=== PATIENT | male | born 1980 | race Two or more races ===

== ENCOUNTER 2020-02-21 20:28 | Inpatient (IN) | payer SELFPAY ==
[2020-02-21 20:45] VITALS: BP 164/93; PULSE 104; RESP 18; TEMP 37.1; O2SAT 98; BMI 29.7
--- NOTE | 2020-02-21 20:48 | ECG_ITS ---
[facility] Test Date: 2020-02-21 Pat Name: Cornell Neal Department: Room: Gender: Male Display Decorator: : 1980 Requested By: Opal Fitzgerald Order Number: [id number] Watkins MD: Farrah Lujan M.D. Measurements Intervals [place] Rate: 96 P: 39 CA: 160 QRS: 40 QRSD: 94 T: 23 QT: 335 QTc: 423 Interpretive Statements SINUS RHYTHM No previous ECG available for comparison Electronically Signed On 02-21-2020 21:15:37 CDT by Farrah Lujan M.D. [email or web address]
--- NOTE | 2020-02-21 20:50 | ED_ITS ---
HPI - General Adult General: Chief complaint: Psychiatric Symptoms Stated complaint: 96 Time Seen by Provider: 02/21/20 20:41 Source: patient Mode of arrival: ambulatory Limitations: no limitations History of Present Illness: HPI narrative: Cornell is a 40-year-old male who arrives here under a 96-hour hold. Patient previously made suicidal comments and gestures. There are multiple affidavits on the chart. Please see this for review. Patient is reliable at this time. Associated symptoms: Deny chest pain, dyspnea, headache(s), nausea, rash, palpitations, syncope or vomiting Review of Systems Const: Denies: fever(s) Eyes: Denies: change in vision ENMT: Denies: throat pain Card: Denies: chest pain, palpitations, syncope, pre-syncope or dyspnea on exertion Resp: Denies: dyspnea, productive cough or non-productive cough GI: Denies: abdominal pain, nausea, vomiting or diarrhea : Denies: flank pain, dysuria, urinary frequency or urinary urgency Musc: Denies: neck pain, back pain or extremity pain Skin/Breast: Denies: rash or pruritus Neuro: Denies: headache(s), numbness in extremities, weakness in extremities or dizziness Eric/Lymph: Denies: easy bruising or easy bleeding All/Imm: Denies: urticaria Physical Exam Const: COMMON NORMALS: no acute distress, patient oriented x3, no limitations, healthy appearing and well nourished GENERAL APPEARANCE: cooperative, well kempt and well developed HENMT: COMMON NORMALS: normocephalic, atraumatic, external ears normal, EAC's normal and Normal external nose present HEAD & SCALP: normal to inspection, normocephalic and atraumatic FACE & SINUS: normal facial exam and face symmetric NOSE: Normal external nose present and Normal nares present EXTERNAL EAR: Yes external ears normal EXTERNAL AUDITORY CANAL: EAC's normal MOUTH: Normal oral and palatal mucosa present, lip normal and tongue normal Eye: COMMON NORMALS: Equal, round and reactive pupils present and conjunctivae normal GENERAL EYE: appearance normal, both eyes and all related structures ALIGNMENT: Yes alignment normal PERIORBITAL: periorbital findings normal EYELID: eyelids normal CONJUNCTIVA: Yes conjunctivae normal SCLERA: sclerae normal PUPIL: Yes Equal, round and reactive pupils present Neck/C-Spine: COMMON NORMALS: full ROM, no lymphadenopathy, supple, no meningeal signs and no JVD GENERAL: Yes normal visual inspection and Yes trachea midline Chest: COMMONS NORMALS: normal inspection of the chest and normal palpation of entire chest wall Resp: COMMON NORMALS: normal respiratory effort, No retractions and No use of accessory muscles EFFORT & INSPECTION: Yes able to speak in complete sentences and Yes symmetric chest movement AUSCULTATION: no crackles, no rales, no rhonchi and no wheezes Cardio: COMMON NORMALS: no JVD, regular rate, regular rhythm, S1 normal heart sound present and S2 normal heart sound present RATE: regular rate RHYTHM: regular rhythm HEART SOUNDS: S1 normal heart sound present, S2 normal heart sound present, no click, no gallops, no murmurs, no rubs and abnormal split S2 GI: COMMON NORMALS: Soft to palpation and No hepatosplenomegaly present PALPATION: Yes Soft to palpation, No Tenderness to palpation present (GI), No Guarding due to palpation present (GI), No Rigid due to palpation, Yes No hepatosplenomegaly present, No Hernia present, No Palpable mass present and No Pulsatile mass present : COMMON NORMALS: Yes no CVA tenderness BLADDER/KIDNEY EXAM: Yes no CVA tenderness Back/Pelvis: COMMON NORMALS: no CVA tenderness, thoracic and lumbar spine normal to inspection, no thoracic nor lumbar tenderness and thoraco-lumbar ROM normal Extremity: COMMON NORMALS: normal to inspection, full ROM, capillary refill normal, no joint enlargement, no clubbing, cyanosis or edema and no calf tenderness Neuro: COMMON NORMALS: patient oriented x3, CN's II-XII intact bilaterally, moves all extremities, no focal motor deficits and no sensory deficits noted MENINGEAL SIGNS: Yes no meningeal signs SPEECH: speech normal Psych: COMMON NORMALS: mental status grossly normal, Normal thought process present, cooperative, normal affect, speech normal and activity/motor behavior normal APPEARANCE: Yes well kempt SPEECH: Yes normal speech THOUGHT PROCESS: Normal thought process present Skin: COMMON NORMALS: no rashes or lesions noted, turgor normal, no jaundice, no petechiae and no mottling GENERAL SKIN EXAM: no rashes or lesions noted and turgor normal Course Vital Signs: Vital signs: Vital Signs Temperature 98.8 F 02/21/20 20:45 Pulse Rate 104 H 02/21/20 20:45 Respiratory Rate 18 02/21/20 20:45 Blood Pressure 164/93 02/21/20 20:45 Pulse Oximetry 98 02/21/20 20:45 [facility] - General Adult Lab Data: Attestation: I reviewed the patient's lab results. Labs: Lab Results 02/21/20 02/21/20 Range/Units 20:50 20:50 WBC 8.5 (4.0-10.0) 10^3/ uL RBC 5.17 (4.1-5.3) 10^6/u L Hgb 13.9 (11.7-16.6) g/dL Hct 43.8 (42.0-52.0) % MCV 84.7 (80-94) fL MCH 26.9 L (28.0-34.0) pg MCHC 31.7 (30.0-36.0) g/dL RDW 14.1 (12.1-15.1) % Plt Count 322 (130-400) 10^3/c mm MPV 11.4 H (7.4-10.4) fL Neut % (Auto) 62.3 % Lymph % (Auto) 26.7 % [place] % (Auto) 8.2 % Eos % (Auto) 1.8 % Baso % (Auto) 0.8 % Neut # (Auto) 5.3 (1.8-7.7) 10^3/u L Lymph # (Auto) 2.3 (0.8-4.8) 10^3/u L [place] # (Auto) 0.7 (0.2-0.9) 10^3/u L Eos # (Auto) 0.2 (0.0-0.8) 10^3/u L Baso # (Auto) 0.1 (0.0-0.1) 10^3/u L Nucleated RBC % (a uto) 0 % Nucleated RBCs # 0.0 /100WBC Sodium 142 (136-145) mmol/L Potassium 3.5 (3.5-5.1) mmol/L Chloride 104 (98-107) mmol/L Carbon Dioxide 25 (22-29) mmol/L Anion Gap 16.5 (5-19) BUN 14 (6-20) mg/dL Creatinine 0.8 (0.7-1.2) mg/dL GFR Calculation 107.1 (90-130) mL/min Glucose 100 (65-115) mg/dL Calculated Osmolal ity 290 (285-295) mOsm/k g Calcium 9.7 (8.5-10.5) mg/dL Total Bilirubin 0.4 (0.15-1.2) mg/dL AST 24 (0-40) U/L ALT 30 (0-41) U/L Alkaline Phosphata se 64 (40-130) IU/L Total Protein 7.7 (6.6-8.7) g/dL Albumin 4.8 (3.5-5.2) g/dL Globulin 2.9 (1.3-4.6) g/dL EKG Data^: EKG 1: Attestation: I personally reviewed and interpreted this EKG as follows: EKG interpretation date: 02/21/20 EKG interpretation time: 21:21 Interpretation: Case reviewed with Dr. Felix, he agrees to accept the patient to the neuropsychiatric unit. 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
[2020-02-21 20:55] LABS: Basophils # 0.1 10^3/uL (0.0-0.1); Basophils % 0.8 %; Eosinophils # 0.2 10^3/uL (0.0-0.8); Eosinophils % 1.8 %; Hematocrit 43.8 % (42.0-52.0); Hemoglobin 13.9 g/dL (11.7-16.6); Lymphocytes # 2.3 10^3/uL (0.8-4.8); Lymphocytes % 26.7 %; Mean Corpuscular HGB Conc 31.7 g/dL (30.0-36.0); Mean Corpuscular Hemoglobin 26.9 pg (28.0-34.0); Mean Corpuscular Volume 84.7 fL (80-94); Mean Platelet Volume 11.4 fL (7.4-10.4); Monocytes # 0.7 10^3/uL (0.2-0.9); Monocytes % 8.2 %; Neutrophils # 5.3 10^3/uL (1.8-7.7); Neutrophils % 62.3 %; Nucleated Red Blood Cells % 0 %; Platelet Count 322 10^3/cmm (130-400); Red Blood Count 5.17 10^6/uL (4.1-5.3); Red Cell Distribution Width 14.1 % (12.1-15.1); White Blood Count 8.5 10^3/uL (4.0-10.0)
[2020-02-21 21:13] LABS: Alanine Aminotransferase 30 U/L (0-41); Albumin Level 4.8 g/dL (3.5-5.2); Alkaline Phosphatase 64 IU/L (40-130); Anion Gap 16.5 (5-19); Aspartate Amino Transferase 24 U/L (0-40); Blood Urea Nitrogen 14 mg/dL (6-20); Calcium 9.7 mg/dL (8.5-10.5); Carbon Dioxide 25 mmol/L (22-29); Chloride 104 mmol/L (98-107); Globulin 2.9 g/dL (1.3-4.6); Glomerular Filtration Rate 107.1 mL/min (90-130); Glucose 100 mg/dL (65-115); Osmolality Calculated 290 mOsm/kg (285-295); Potassium 3.5 mmol/L (3.5-5.1); Sodium 142 mmol/L (136-145); Total Bilirubin 0.4 mg/dL (0.15-1.2); Total Protein 7.7 g/dL (6.6-8.7)
[2020-02-21 21:43] LABS: Acetaminophen < 5.0 ug/mL (10-30); Alcohol Level < 10 mg/dL (0-10); Salicylate < 0.3 mg/dL (3-10)
[2020-02-21 22:02] VITALS: BP 124/74; PULSE 95; RESP 18; TEMP 37.1; O2SAT 98
[2020-02-21 22:11] VITALS: BP 126/86; PULSE 98; RESP 22; TEMP 37.1; O2SAT 98
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
[2020-02-21 23:19] LABS: Amphetamines Screen Urine Negative (Negative); Barbiturates Screen Urine Negative (Negative); Benzodiazepines Screen Urine Negative (Negative); Cocaine Screen Urine Negative (Negative); Opiate Screen Urine Negative (Negative); PCP Screen Urine Negative (Negative); THC Screen Urine Negative (Negative)
[2020-02-22 06:00] VITALS: BP 111/70; PULSE 90; RESP 21; TEMP 36.5; O2SAT 98
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
[2020-02-22 14:00] VITALS: BP 119/79; PULSE 89; RESP 18; TEMP 36.6; O2SAT 97
[2020-02-22 20:13] VITALS: BP 114/76; PULSE 91; RESP 16; TEMP 36.5; O2SAT 94
[2020-02-23 06:00] VITALS: BP 126/74; PULSE 84; RESP 17; TEMP 36.7; O2SAT 93
--- NOTE | 2020-02-23 10:46 | PM.NPN ---
Subjective NPU Subjective: Interval history: Cornell presents today reporting that he is feeling okay. We discussed the risks, benefits, and alternatives of starting Prozac which was the medication he was taking in the past according to the notes that I could find. It appears he also took Paxil at one point as well, but he understood and agreed to proceed as is documented in this note. According to him, again he was on a 96-hour hold and that we would have to identify concerns that the sister has, since that is where he is living, as well as figure out what to do with the ? in her situation, given he reports that it is sort of a strange relationship. Otherwise he reports he is feeling a little better, eating and sleeping okay. Mental Status Exam MSE Comments: This is an obese, white male, with adequate dress, grooming, and eye contact. No abnormal movements except for mild psychomotor retardation. Cooperative with exam in no acute distress. Speech was decreased rate and volume with some mild dysarthria. Mood described as depressed; affect congruent. Thought process, organized. Thought content: patient denied any suicidal or homicidal ideation, there were no delusions reported or noted, patient denied any auditory or visual hallucinations. Attention, concentration, and memory appeared intact but were not formally tested. Alert and oriented times three. Insight and judgment are limited, and intellectual ability appears limited. Vitals/I&O/Wt Last Vital Signs Temp 98.2 F 02/23/20 20:28 Pulse 88 02/23/20 20:28 Resp 16 02/23/20 20:28 BP 114/76 02/23/20 20:28 Pulse Ox 96 02/23/20 20:28 Data NPU : 02/21/20 20:50 02/21/20 20:50 A&P Additional A&P Information (1) Borderline intellectual functioning: (2) Depression: (3) Suicidal ideation: (4) Parent-child relational problem: This is a 40 year old, white male, with a history of mental health treatment that reportedly goes back to his childhood and foster care, who has no information on his genetic liabilities for mental health or addiction issues, who presents now open to restart what he believes to be Prozac which he reports he took in the past and was helpful, as he finds himself dealing with significant psychosocial stressors at this time. Continue current medication. start Prozac 20 mg po qam. Encourage individual, group, and milieu therapy. Continue q 15-minute check for safety. Plan to reconnect with [facility] for outpatient treatment. Involuntary Hold Information 96 Hour Hold: 96 Hour Involuntary Admission: Yes Attestations NPU Medical Necessity Statement*: Inpatient hospitalization is medically necessary, and the clinically appropriate intervention at this time. We will monitor medications and titrate to affect. We will assess the 96-hour hold and safety considerations prior to discharge. Likely length of stay 3-5 days. Coding Level of Care Code Acute Electric Freight Car Operator for Margo Lemus
[2020-02-23 13:13] VITALS: BP 108/69; PULSE 83; RESP 18; TEMP 36.9; O2SAT 97
[2020-02-23] MEDS: fluoxetine 20 mg Capsule PO (17:02)
[2020-02-23 20:28] VITALS: BP 114/76; PULSE 88; RESP 16; TEMP 36.8; O2SAT 96
[2020-02-24 06:00] VITALS: BP 127/81; PULSE 97; RESP 17; TEMP 36.8; O2SAT 97
[2020-02-24] MEDS: fluoxetine 20 mg Capsule PO (08:34)
--- NOTE | 2020-02-24 12:24 | P.PN_ITS ---
Subjective NPU Subjective: Interval history: Cornell presents today reporting that he is feeling a lot better with the medication. He currently denies any major issues. There have been no issues on the unit with aggression or anything else. He reports that he is eating and sleeping better, and that he is hopeful for discharge sooner rather than later. We discussed the fact that there would be a new doctor tomorrow and that he would have access to these notes and be able to see what the plan is. Most importantly, we agreed, would be him working with the social workers to identify what his follow up will be so that he would have someone to speak to about the emotional challenges that he has been having. He looks forward to getting back to work. Mental Status Exam MSE Comments: This is an obese, white male, with adequate dress, grooming, and eye contact, with poor dentition. No abnormal movements. Cooperative with exam in no acute distress. Speech was slightly decreased rate and volume, with some dysarthria. Mood described as pretty good; affect slightly subdued but euthymic. Thought process, organized. Thought content: patient denied any suicidal or homicidal ideation, there were no delusions reported or noted, patient denied any auditory or visual hallucinations. Attention, concentration, and memory appeared intact but none were formally tested. He is alert and oriented times th ree. Insight and judgment are limited. Intellectual ability is limited. Vitals/I&O/Wt Last Vital Signs Temp 98.3 F 02/24/20 06:00 Pulse 97 02/24/20 06:00 Resp 17 02/24/20 06:00 BP 127/81 02/24/20 06:00 Pulse Ox 97 02/24/20 06:00 Weight last 48 hrs Weight 91.229 kg Data NPU : 02/21/20 20:50 02/21/20 20:50 A&P Additional A&P Information (1) Borderline intellectual functioning: (2) Depression: (3) Suicidal ideation: (4) Parent-child relational problem: This is a 40 year old, white male, with a history of mental health treatment that reportedly goes back to his childhood and foster care, who has no information on his genetic liabilities for mental health or addiction issues, who presents now open to restart what he believes to be Prozac which he reports he took in the past and was helpful, as he finds himself dealing with significant psychosocial stressors at this time. Continue current medication. Encourage individual, group, and milieu therapy. Continue q 15-minute check for safety. Plan to reconnect with [facility] for outpatient treatment. Involuntary Hold Information 96 Hour Hold: 96 Hour Involuntary Admission: Yes Attestations NPU Medical Necessity Statement*: Inpatient hospitalization is medically necessary and the clinically appropriate intervention, at this time. Current monitoring of patient not demonstrating any concerns for lethality, however, we will try to obtain some corroborating information. Likely length of stay is one to two days. Coding Level of Care Code Acute Construction Cost Estimator for Margo Lemus
[2020-02-24 14:00] VITALS: BP 99/66; PULSE 92; RESP 18; TEMP 37.2
[2020-02-24 21:47] VITALS: BP 102/69; PULSE 99; RESP 20; TEMP 36.8; O2SAT 97
[2020-02-25 06:00] VITALS: BP 100/67; PULSE 95; RESP 17; TEMP 37; O2SAT 95
[2020-02-25] MEDS: fluoxetine 20 mg Capsule PO (08:46)
--- NOTE | 2020-02-25 12:52 | PC.NURSE ---
Patient Behavior Patient agitated and uncooperative during admission process. Patient asked if I knew about [facility] . I said yes. Then he said let me the fuck out of here . I told him I would notify Dr Meza. After speaking with the physician I told the patient that he would be seen by him soon.
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
[2020-02-25 13:14] VITALS: BP 100/67; PULSE 95; RESP 17; TEMP 37; O2SAT 95
== END 2020-02-25 14:58 | disposition home or self-care (01) | DRG 883 ==
LOC: ER 20:54 → NP 21:03
PROVIDERS: Emergency Medicine; Admitting Provider Psychiatry & Neurology Psychiatry; Visit Provider Psychiatry & Neurology Psychiatry
DX: F60.3 Borderline personality disorder (principal); R45.851 Suicidal ideations; F32.9 Major depressive disorder, single episode, unspecified; Z62.820 Parent-biological child conflict; F17.210 Nicotine dependence, cigarettes, uncomplicated
CPT/HCPCS: 12345; 80053; 80306; 80307; 85025; 93005; 99284

== ENCOUNTER 2023-05-13 21:23 | Inpatient (IN) | payer SELFPAY ==
[2023-05-13 21:24] VITALS: BP 149/93; PULSE 104; RESP 18; TEMP 37.1; O2SAT 95; BMI 32.3
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
[2023-05-13 21:54] VITALS: RESP 19
[2023-05-13] MEDS: HYDROmorphone 1 mg/mL INJ 1 mL IVP ×2 (21:54→23:43)
[2023-05-13] MEDS: ondansetron 2 mg/ML SDV 2 mL 4 MG IVP (21:54)
[2023-05-13 22:00] VITALS: BP 141/85; PULSE 129; O2SAT 94
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
[2023-05-13 23:20] LABS: Basophils # 0.1 10^3/uL (0.0-0.1); Basophils % 0.4 %; Eosinophils % 0.3 %; Hematocrit 47.3 % (37-53); Lymphocytes # 1.5 10^3/uL (0.8-4.8); Lymphocytes % 9.3 %; Mean Corpuscular HGB Conc 31.7 g/dL (30-55); Mean Corpuscular Hemoglobin 26.5 pg (27-33); Mean Corpuscular Volume 83.4 fl (82-101); Monocytes % 6.3 %; Neutrophils % 83.3 %; Nucleated Red Blood Cells % 0 %; Platelet Count 293 10^3/cmm (157-399); Red Blood Count 5.67 10^6/uL (3.85-5.65); Red Cell Distribution Width 14.2 % (12.1-15.1); White Blood Count 15.82 10^3/uL (3.29-11.43)
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
[2023-05-13 23:30] VITALS: BP 116/87
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
[2023-05-13 23:43] VITALS: RESP 18
[2023-05-13 23:43] LABS: Alanine Aminotransferase 19 U/L (0-41); Albumin Level 4.7 g/dL (3.5-5.2); Alkaline Phosphatase 85 U/L (40-130); Anion Gap 14.7 (5-19); Aspartate Amino Transferase 19 U/L (0-40); Blood Urea Nitrogen 10 mg/dL (6-20); Calcium 9.1 mg/dL (8.5-10.5); Carbon Dioxide 25 mmol/L (22-29); Chloride 103 mmol/L (98-107); Globulin 3.1 g/dL (1.3-4.6); Glomerular Filtration Rate 92.1 mL/min (90-130); Glucose 139 mg/dL (65-115); Osmolality Calculated 289 mOsm/kg (285-295); Potassium 3.7 mmol/L (3.5-5.1); Sodium 139 mmol/L (136-145); Total Bilirubin 0.4 mg/dL (0.15-1.2); Total Protein 7.8 g/dL (6.6-8.7)
[2023-05-13 23:45] VITALS: BP 115/83; PULSE 114; O2SAT 95
[2023-05-13 23:45] LABS: Alcohol Level < 10 mg/dL (0-10)
[2023-05-14] VITALS (14 sets, daily range): BP systolic 99–134; BP diastolic 64–84; PULSE 93–123; RESP 14–20; TEMP 36.7–36.9; O2SAT 93–97
--- NOTE | 2023-05-14 | XR_ITS ---
WS: [id number] INTRAOPERATIVE TECHNIQUE: 5 Spot fluoroscopic images for intraoperative purposes. FLUOROSCOPY TIME: 72.0 seconds CLINICAL INFORMATION: EXFIX RIGHT ANKLE PILON FX FINDINGS: Intraoperative changes of external fixator placement. Improved alignment of the midshaft fibula fract ure and comminuted intra-articular fracture involving the distal tibia. IMPRESSION: Images obtained for intraoperative purposes.
[2023-05-14] MEDS: iohexol 350 mg/mL 500 mL Btl (per mL) IV (00:10)
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
--- NOTE | 2023-05-14 02:00 | PC.NURSE ---
Scott catheter placement attempted by this nurse and ELLA Stevens Charge. Both nurses were unsuccessful and patient was not tolerating procedure.
[2023-05-14] MEDS: sodium chloride 0.9% 1,000 ML 75 ML IV ×2 (02:42→10:18)
[2023-05-14] MEDS: morphine 4 mg/mL SDV 1 mL 2 MG IVP (02:59)
[2023-05-14] MEDS: ketorolac 30 mg/mL INJ 15 MG IVP (03:55)
[2023-05-14 06:23] LABS: Add Urine Microscopic? YES; Bilirubin Urine Neg (Negative); Blood Urine Neg (Negative); Glucose Urine UA Norm (Normal); Ketones Urine 1+ (Negative); Leukocyte Esterase Urine Trace (Negative); Nitrate Urine Positive (Negative); Protein Urine 1+ (Negative); Specific Gravity, Urine 1.015 (1.005-1.030); Urine Appearance Clear (CLEAR); Urine Color Yellow (Yellow); Urobilinogen Urine 1 mg/dL (Negative); pH Urine 6.5 (5-7)
[2023-05-14 06:24] LABS: Add Urine Culture? No; RBC Urine 0-4 /hpf (0-2); WBC Urine 0-4 /hpf (0-5)
--- NOTE | 2023-05-14 07:43 | ANES.PREANE2 ---
Pre-Anesthetic Assessment Height/Weight: Height 1.68 m Weight 90.718 kg Temp Pulse Resp BP Pulse Ox O2 Del Method 98.4 F 108 H 18 128/81 97 Room Air 05/14/23 04:00 05/14/23 06:00 05/14/23 04:00 05/14/23 04:00 05/14/23 04:00 05/14/23 04:00 Operation Date: 05/14/23 08:10 Proposed Procedures p External Fixator Lower Extremity - Right Ankle(Right) - TITO WagnerM Was Beta David taken within 24 hours: N/A Was Clonidine taken within 24 hours: N/A Last intake: Intake Last Liquid Date 05/13/23 Last Liquid Time 20:00 Last Solid Date 05/13/23 Last Solid Time 13:00 Social Alcohol and No tobacco social alcohol Exam alert, oriented x 3, clear to auscultation bilaterally and regular rate & rhythm Airway Submandibular: within normal limits Cervical ROM: within normal limits Mallampati: Class III Comments: Comments: Missing upper front teeth History/ROS No significant history except as noted and No significant complaints Neuropsych Anxiety and Depression Anesthetic Plan ASA status: 2 Anesthesia: General and Regional (specify below) Other: Surgeon request adductor canal block and popliteal block Risk of > 500 ml blood loss (7ml/kg in children): No Medications/Allergies Home Medications Medication Instructions Recorded Confirmed Last Taken Type No Known Home Medications 05/14/23 05/14/23 Unknown History Allergies Allergy/AdvReac Type Severity Reaction Status Date / Time No Known Allergies Allergy Verified 02/28/20 08:51 Current Medications Generic Name Dose Route Start Last Admin Trade Name Freq PRN Reason Stop Dose Admin Sodium Chloride 1,000 mls @ 75 mls/hr 05/14/23 01:45 05/14/23 02:42 Sodium Chloride 0.9% IV 75 mls/hr .[id number] SALVADOR Administration Ketorolac Tromethamine 15 mg 05/14/23 01:35 05/14/23 03:55 Ketorolac 30 Mg/Ml Inj IVP 05/19/23 01:34 15 mg Q6H PRN Administration MODERATE PAIN Morphine Sulfate 2 mg 05/14/23 01:35 05/14/23 02:59 Morphine 4 Mg/Ml Sdv 1 Ml IVP 2 mg Q4H PRN Administration SEVERE PAIN PFSH Anesthesia Medical History Generalized anxiety disorder Generalized anxiety disorder; excessive or unrealistic anxiety about two or more aspects of life work, social relationships, financial matters, and often causes palpitations, shortness of breath, and dizziness. Social History Smoking and tobacco status: former smoker Quit status (tobacco): has quit using tobacco Year quit tobacco: 01/2020 Former quit date comment: off and on smoking for a couple of years. Second hand smoke exposure: Yes Current gender identity: Male Data Anesthesia 05/13/23 23:09 05/13/23 23:09 Short CBC 05/13/23 Range/Units 23:09 WBC 15.82 H (3.29-11.43) 10^3/uL Hgb 15.00 (11.27-16.99) g/dL Hct 47.3 (37-53) % MCV 83.4 (82-101) fl Plt Count 293 (157-399) 10^3/cmm Neut % (Auto) 83.3 % Neut # (Auto) 13.20 H (1.8-7.7) 10^3/uL BMP 05/13/23 23:09 Sodium 139 Potassium 3.7 Chloride 103 Carbon Dioxide 25 BUN 10 Creatinine 0.9 Glucose 139 H Calcium 9.1 Liver Function 05/13/23 Range/Units 23:09 Total Bilirubin 0.4 (0.15-1.2) mg/dL AST 19 (0-40) U/L ALT 19 (0-41) U/L Alkaline Phosphatase 85 (40-130) U/L Albumin 4.7 (3.5-5.2) g/dL Urine 05/14/23 Range/Units 05:35 Urine Color Yellow (Yellow) Urine Appearance Clear (CLEAR) Urine pH 6.5 (5-7) Ur Specific [place] 1.015 (1.005-1.030) Urine Protein 1+ H (Negative) Urine Glucose (UA) Norm (Normal) Urine Ketones 1+ H (Negative) Urine Nitrate Positive H (Negative) Urine Bilirubin Neg (Negative) Ur Leukocyte Esterase Trace H (Negative) Urine RBC 0-4 H (0-2) /hpf Urine WBC 0-4 H (0-5) /hpf Cardiac Studies: No Data to Display
--- NOTE | 2023-05-14 07:45 | W.PM.OPSUD ---
Surgery/Procedure H&P Update DATE OF PROCEDURE: May 14, 2023 DATE H&P PERFORMED: 05/14/23 CHANGES TO PREVIOUS DOCUMENTATION: No changes PRIMARY INDICATION FOR PROCEDURE: Right ankle pilon fracture PLANNED PROCEDURE: Operation Date: 05/14/23 08:10 Proposed Procedures p External Fixator Lower Extremity - Right Ankle(Right) - Choco Williamson DPM
[2023-05-14] MEDS: midazolam 1 mg/mL INJ 2 mL 2 MG IVP (08:00)
[2023-05-14] MEDS: sodium chloride 0.9% 1,000 ML 30 ML IV (08:00)
[2023-05-14] MEDS: ceFAZolin 2,000 MG in sodium chloride 0.9% (plus) 50 ML 100 MG IV (08:04)
--- NOTE | 2023-05-14 09:35 | P.BOP_ITS ---
Date of procedure: 05/14/2023 Surgeon name: J Luis CoronelPChaparro Physician Underwriter(s) name(s): No assistance Procedure(s) performed: Closed reduction right ankle with application of multiplanar external fixator Description of findings: Pilon fracture right ankle Estimated blood loss: Less than 10 cc Specimen(s) removed: None Post-operative diagnosis: Pilon fracture right ankle
--- NOTE | 2023-05-14 09:42 | ANE.PACU2 ---
Inpatient post-anesthesia follow up: Airway intact: Yes Vital signs: Temperature 98.1 F Pulse Rate 98 Respiratory Rate 16 Blood Pressure 114/75 Pulse Oximetry 93 Oxygen Delivery Me thod Room Air Oxygen Flow Rate Fraction of Inspir ed Oxygen Hydration adequate: Yes Nausea and vomiting: No Pain level: 1 Mental status: Baseline
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
--- NOTE | 2023-05-14 10:05 | CTR_ITS ---
PROCEDURE INFORMATION: Exam: CT Right Lower Extremity Without Contrast, Ankle Exam date and time: 05/14/2023 10:56 AM Age: 43 years old Clinical indication: Device placement; Other: Ex fix RT ankle; Additional info: Post op TECHNIQUE: Imaging protocol: CT of the right lower extremity without contrast was performed. Exam focused on the ankle. Radiation optimization: All CT scans at this facility use at least one of these dose optimization techniques: automated exposure control; mA and/or kV adjustment per patient size (includes targeted exams where dose is matched to clinical indication); or iterative reconstruction. REPORTING DATA: Count of CT and Cardiac NM exams in prior 12 months: This patient has received 0 known CTs and 0 known cardiac nuclear medicine studies in the 12 months prior to the current study. COMPARISON: CR XR ankle RT min 3V* [id number] 05/13/2023 10:09 PM RADIATION DOSE METRICS: Total DLP (mGy-cm): 261.56 FINDINGS: Tubes, catheters and devices: External fixator device is in place Bones/joints: . Comminuted intra-articular fracture deformity of the distal tibia with better anatomic alignment. There is a cortical fragment within the tibial plafond. Oblique fracture deformity of the distal fibula with a proximally 2 mm displacement of the fracture fragments. Soft tissues: Diffuse soft tissue swelling most pronounced medially. CT/CT ankle RT wo con* [id number] IMPRESSION: External fixator device is in place. There is near anatomic alignment of the fracture fragments. There is a cortical bone fragment in the tibial plafond region.
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
== END 2023-05-14 18:08 | disposition home or self-care (01) | DRG 494 ==
LOC: ER 05-14 00:47 → MEDSURG 05-14 01:29
PROVIDERS: Podiatrist Foot & Ankle Surgery; Admitting Provider Student in an Organized Health Care Education/Training Program; Emergency Provider Emergency Medicine; Visit Provider Internal Medicine
PROC: 0QHG34Z Insertion of Internal Fixation Device into Right Tibia, Percutaneous Approach (ICD-10-PCS; principal; 2023-05-14 08:00)
DX: S82.871A Displaced pilon fracture of right tibia, initial encounter for closed fracture (principal); S82.431A Displaced oblique fracture of shaft of right fibula, initial encounter for closed fracture; S92.531A Displaced fracture of distal phalanx of right lesser toe(s), initial encounter for closed fracture; V49.40XA Driver injured in collision with unspecified motor vehicles in traffic accident, initial encounter; F41.1 Generalized anxiety disorder; Z87.891 Personal history of nicotine dependence
CPT/HCPCS: 29505; 36415; 70450; 71045; 71260; 72125; 73590; 73610; 73630; 73700; 74177; 76000; 80053; 80307; 81001; 83735; 85025; 96374; 96375; 96376; 97116; 97161; 99285; C1713; J0690; J1100; J1170; J1885; J2250; J2270; J2405; J2704; J2795; J3010; J7030; Q9967

== ENCOUNTER → 2023-05-19 11:10 | Outpatient (BNVA) | payer SELFPAY | PROVIDERS: Visit Provider Podiatrist Foot & Ankle Surgery | DX: S82.891D Other fracture of right lower leg, subsequent encounter for closed fracture with routine healing; S82.301D Unspecified fracture of lower end of right tibia, subsequent encounter for closed fracture with routine healing; S82.401D Unspecified fracture of shaft of right fibula, subsequent encounter for closed fracture with routine healing; X58.XXXD Exposure to other specified factors, subsequent encounter | CPT/HCPCS: 73610 ==

== ENCOUNTER 2023-06-08 05:46 | Day surgery (SDC) | payer SELFPAY ==
[2023-06-08] VITALS (14 sets, daily range): BP systolic 113–137; BP diastolic 71–102; PULSE 110–134; RESP 8–26; TEMP 36.1–36.8; O2SAT 95–99
[2023-06-08] MEDS: sodium chloride 0.9% 1,000 ML 30 ML IV (06:28)
[2023-06-08] MEDS: acetaminophen 1,000 MG/100 ML PIGGYBACK 400 MG IV (06:29)
[2023-06-08] MEDS: gabapentin 300 mg Capsule PO (06:30)
--- NOTE | 2023-06-08 06:41 | W.PM.OPSUD ---
Surgery/Procedure H&P Update DATE OF PROCEDURE: June 08, 2023 DATE H&P PERFORMED: 06/02/23 CHANGES TO PREVIOUS DOCUMENTATION: No changes PREOP DIAGNOSIS: Right ankle pilon fracture PLANNED PROCEDURE: Operation Date: 06/08/23 07:00 Proposed Procedures p Open reduction internal fixation right pilon fracture including tibia and fibula, 28565, ?S82.871A, S82.421A(Right) - Choco Williamson DPM
--- NOTE | 2023-06-08 06:54 | P.ANESUD_ITS ---
Pre-Anesthetic Update Pre-Anesthetic Assessment: Date of Surgery/Procedure: 06/08/23 Preop Jennifer gnosis: Right ankle pilon fracture Proposed Procedure: Operation Date: 06/08/23 07:00 Proposed Procedures p Open reduction internal fixation right pilon fracture including tibia and fibula, 96238, ?S82.871A, S82.421A(Right) - Choco Williamson DPM Any changes to Pre-Anesthetic Assessment?: No Last Intake: Intake Last Liquid Date 06/07/23 Last Liquid Time 21:00 Last Solid Date 06/07/23 Last Solid Time 19:00 Vitals: Temperature 98.2 F 06/08/23 06:17 Temperature Source Temporal Artery S can 06/08/23 06:17 Pulse Rate 111 H 06/08/23 06:17 Respiratory Rate 18 06/08/23 06:17 Blood Pressure 113/76 06/08/23 06:17 Blood Pressure Nathalie n 88 06/08/23 06:17 Pulse Oximetry 99 06/08/23 06:17 Oxygen Delivery Me thod Room Air 06/08/23 06:21 Exam: Pre-Anes Outpt Exam: alert, oriented x 3, clear to auscultation bilaterally and regular rate & rhythm Cardiac Studies: No Data to Display
[2023-06-08] MEDS: ceFAZolin 2,000 MG in sodium chloride 0.9% (plus) 50 ML 100 MG IV (06:58)
--- NOTE | 2023-06-08 06:59 | ANES.PROC ---
Anesthesia Procedures Procedure/Date: 06/08/23 Nerve Block ^: Nerve Block 1: Main Anesthesia: general anesthesia Time Out Performed: Yes Consent: requested by attending/covering physician, from patient, risks and benefits reviewed and patient agrees to proceed Nerve block location: adductor canal (R) and popliteal (R) Anesthesia monitors applied: pulse oximetry, EKG, BP cuff and oxygen Nerve block position: supine Anesthetic Used: ropivicaine 0.5% (20 ml popliteal, 10 ml adductor) and with decadron (3 mg popliteal, 1 mg adductor) Ultrasound used to: recognize landmarks and visualize and ID femerol nerve Nerve Stimulator Used?: No Interscalene/Femoral BLK: 4 stimuplex 21 g needle used for position and inplane approach, visualize local anesthetic spread and no vascular puncture identified Injection: neg aspiration of heme Patient Tolerated Procedure: well and no complications Complications: none
--- NOTE | 2023-06-08 10:56 | W.PM.BPON ---
Date of procedure: 06/08/23 Surgeon name: Dr. Choco Williamson DPM [employer] Wh[employer] Machine Operator(s) name(s): None Procedure(s) performed: Removal external fixator right lower leg, ORIF right pilon fracture Description of findings: Comminuted distal tibia and fibula Estimated blood loss: 100cc Specimen(s) removed: None Post-operative diagnosis: Same
--- NOTE | 2023-06-08 11:08 | XRR_ITS ---
PROCEDURE INFORMATION: Exam: XR Right Ankle Exam date and time: 06/08/2023 11:11 AM Age: 43 years old Clinical indication: Device placement; Joint fixation hardware; Prior surgery; Surgery date: Post-operative (0-2 days); Surgery type: Post op RT ankle TECHNIQUE: Imaging protocol: Radiologic exam of the right ankle. Views: 3 or more views. COMPARISON: CR XR ankle RT min 3V* [id number] 05/19/2023 11:19 AM FINDINGS: Bones/joints: Postop surgical changes consistent with open reduction internal fixation of the distal right tibial and fibular fracture deformities. There is anatomic alignment of the fracture fragments. Soft tissues: Normal. XR/XR ankle RT min 3V* [id number] IMPRESSION: Status post ORIF of distal right tibia and fibula fracture deformities. Anatomic alignment of the fracture fragments
--- NOTE | 2023-06-08 11:23 | PC.NURSE ---
Addendum entered by Brigitte Walls RN 06/08/23 11:28: IN PACU - BP REMAINS WITHIN NORMAL LIMITS - EKG ORDERED PER DR ASH - RT NOTIFIED Original Note: 1122 - DR ASH NOTIFIED OF PTS ARRIVAL HEART RATE WELL CONTINUED ELEVATED HEART RATE -
--- NOTE | 2023-06-08 11:25 | ECG_ITS ---
[facility] Test Date: 2023-06-08 Pat Name: Cornell Neal Department: Room: Gender: Male Principal Statistical Programmer: : 1980 Requested By: Azalea Rush Order Number: [id number] Roland MD: Eleanor Wu M.D. Measurements Intervals [place] Rate: 138 P: 89 [place]: 157 QRS: 14 QRSD: 90 T: 26 QT: 353 QTc: 535 Interpretive Statements SINUS TACHYCARDIA NONSPECIFIC T-WAVE ABNORMALITY ABNORMAL RHYTHM ECG Compared to ECG 02/21/2020 21:21:32 T-wave abnormality now present Sinus rhythm no longer present Electronically Signed On 06-08-2023 19:36:13 CDT by Eleanor Wu M.D. [email or web address]
--- NOTE | 2023-06-08 11:34 | PC.NURSE ---
1134 - RT AT SIDE TO DO EKG - PT IS RESTING QUIETLY STATING PAIN IS 2/10 - STATES MY HEART RATE RUNS HIGH ALL THE TIME
--- NOTE | 2023-06-08 11:54 | PC.NURSE ---
1152 - NOTIFIED DR ASH OF HEART RATE CURRENTLY 114 -DR ASH TO BEDSIDE TO ASSESS PT - OK PT MOVE TO PHASE 2
[2023-06-08] MEDS: HYDROcodone-acetaminophen 10-325 mg Tablet 1 TAB PO (12:17)
--- NOTE | 2023-06-08 20:00 | P.OP_ITS ---
Operative Report Date of procedure: June 08, 2023 Pre-op diagnosis: Right pilon fracture Post-op diagnosis: Same Post-op findings: Comminuted distal tibial intra-articular fracture as well as fibular fracture Procedure done: 1. Open reduction internal fixation distal tibia and fibular fracture right lower extremity CPT 54345 2. Removal of multiplanar external fixator right lower extremity CPT 62590 Implants: Distal tibia pilon plate with 3.5 locking and nonlocking screws from [place] [employer] as well as straight fibular plate with 3.5 locking screws from [place]. Straight plate for medial tibia using 3.5 locking screws from [place], V92 Surgeon: Choco Williamson DPM Estimated blood loss: 100 cc Complications: None Findings: See above Procedure: Patient is a 43-year-old male that has a history of right ankle pilon. The patient underwent stabilization with an application of external fixator. He returns the operating room today for definitive internal fixation of the distal pilon fracture. A lengthy discussion regarding the procedure, including risks and complications has been had with the patient and is noted in the recent clinic note. Written and verbal consent have been obtained. All patient questions have been answered to the patient?s satisfaction. No written or verbal guarantees have been given or implied. The patient has been NPO since midnight. The history has been reviewed and the history and physical is current. The signed consent was confirmed and placed in the patient chart. Patient imaging has been reviewed and is consistent with the diagnosis. Under mild sedation, the patient was brought into the operating room and placed on the table in the supine position. IV antibiotics were given by the anesthesia team as preoperative surgical prophylaxis. General sedation was then performed by the anesthesiateam. Popliteal/adductor canal block was performed by the anesthesia department. A pneumatic tourniquet was then placed about the right thigh. The operative extremity was then prepped and draped in the usual fashion. The extremity was then elevated and exsanguinated before the tourniquet was inflated to 325 mmHg. After inflation, the following procedure was then performed. Attention was directed to the right lower extremity where under general anesthesia of the external fixator to the right lower extremity was removed nonsterile he with the exception of the tibial pins and transfixing calcaneal pin. These were prepped with Betadine before being removed sterilely. Next, the entire foot was prepped with Betadine wet-to-dry. Attention was then directed to the lateral aspect of the leg where a 6 Demeter incision was made overlying the fibular fracture. Blunt dissection was carried down through subcutaneous and superficial fascia to the level of the periosteum. This was incised to reveal the underlying fibular fracture. Hematoma formation was noted within the fracture. This was removed using a combination of rongeur, curette, dental pick. The fibula was then reduced to an anatomical position and clamped with lobster-claw clamps. Next a straight fibular plate from [place] was applied to the lateral aspect of the fibula to maintain anatomic position. This was performed using 3.5 locking screws. Attention was then directed to the anterior aspect of the ankle where a 10 cm incision was made overlying the ankle joint. Blunt dissection was carried down through subcutaneous and superficial fascia. Care was taken to preserve adjacent neurovascular structures. Dissection was carried down to the extensor retinaculum which was incised and reflected. The tibialis anterior and neurovascular bundle were retracted laterally. Dissection was carried down to the distal tibia where the periosteum was incised. Dissection was carried out to expose the entire anterior surface of the distal tibia. The distal tibia was noted to be comminuted with multiple fragments. The anterior surface of the tibia was opened at the interval between the anteromedial and anterolateral fragments. This gave direct visualization to the posterior malleolus. Hematoma was removed from this area using a combination of dental pick and curette. Using a lcoqg-wu-oogiw reduction clamp the posterior malleolus was reduced to the appropriate position and fixated to the anteromedial fragment. This was then pinned into the tibia. Good length of the distal tibia was noted on C-arm imaging as well as clinically. Next, the anterolateral fragment was reduced to the appropriate position and fixated to the anteromedial and posterior malleolus fragment. There was noted to be a cortical wedge intra-articular. This was removed. The void to the lateral aspect of the tibia was noted as well. The site was irrigated with copious amounts of sterile saline before it was filled with 8 cc of V92 from [place] [employer]. Next, a distal tibial pilon plate from [place] [employer] was applied overlying the reduced fracture fragments. It was then drilled and filled in standard fashion using 3.5 locking screws. Good positioning of the plate and screws was noted on C-arm imaging. Next, a straight plate from [place] was used to buttress the medial aspect of the tibia. This was performed using 3.5 locking screws. Good positioning of the plate and screws was noted on C-arm imaging as well as clinically. The ankle joint was noted to be congruent. The site was then irrigated with copious amounts of sterile saline before attention was directed to closure. Deep tissue was closed with 2-0 Vicryl followed by subcuticular closure with 3-0 Vicryl and skin closure with skin alexandro. Hemostasis was noted to be achieved after the tourniquet was let down. Good hyperemic response was noted to all digits of the right foot. All incisions were closed with skin alexandro before being dressed with Xeroform, 4 x 4 gauze, Kerlix. The patient was then placed in a well-padded below the knee posterior splint. The patient tolerated the procedure and anesthesia well and without complication. The patient was transported from the operating room to the recovery room with vital signs stable and vascular status intact to all digits of the right foot. The patient was given both written and verbal instructions to remain nonweightbearing to the operative extremity, to keep dressings/splint clean, dry and intact and to take pain medication as directed. The patient will follow-up in the outpatient setting at their scheduled appointment. The patient was discharged with my personal number and was instructed to call if any questions or issues should arise. They were discharged home once anesthesia cri teria was met.
== END 2023-06-08 12:55 | disposition home or self-care (01) ==
PROVIDERS: PCP Podiatrist Foot & Ankle Surgery; Visit Provider Podiatrist Foot & Ankle Surgery
PROC: (CPT 20694; principal; 2023-06-08 07:00)
PROC: (CPT 20694; 2023-06-08 07:00)
DX: S82.871A Displaced pilon fracture of right tibia, initial encounter for closed fracture (principal); X58.XXXA Exposure to other specified factors, initial encounter
CPT/HCPCS: 20694; 27828; 73610; 76000; 93005; C1713 ×2; J0131; J0690; J1100; J1170; J2250; J2371; J2405; J2704; J2795; J3010; J7030

== ENCOUNTER → 2023-06-24 10:55 | Outpatient (BNVA) | payer SELFPAY | PROVIDERS: PCP Podiatrist Foot & Ankle Surgery; Visit Provider Podiatrist Foot & Ankle Surgery | DX: S82.301D Unspecified fracture of lower end of right tibia, subsequent encounter for closed fracture with routine healing; S82.401D Unspecified fracture of shaft of right fibula, subsequent encounter for closed fracture with routine healing; X58.XXXD Exposure to other specified factors, subsequent encounter | CPT/HCPCS: 73610 ==

== ENCOUNTER 2023-06-30 16:01 | Emergency (ER) | payer SELFPAY ==
--- NOTE | 2023-06-30 16:02 | XR_ITS ---
WS: [id number] Portable AP upright chest, 06/30/2023 Clinical Data: cough Comparison: Portable chest, 05/13/2023 Findings: No nodules, masses or effusions are seen. The heart is normal. The pulmonary vascularity is not increased. No pneumonia or pneumothorax is seen. Impression: Negative chest.
[2023-06-30 16:12] VITALS: BP 147/89; PULSE 120; RESP 16; TEMP 36.4; O2SAT 97; BMI 32.3
--- NOTE | 2023-06-30 16:33 | W.ED.GENADLT ---
HPI - General Adult General: Chief complaint: General Medical Stated complaint: coughing up blood Time Seen by Provider: 06/30/23 16:25 Source: patient Mode of arrival: ambulatory Limitations: no limitations History of Present Illness: 43-year-old male he did have ankle surgery a month ago he states that last night he started having some hemoptysis he states that since resolved he denies any chest pain or shortness of breath. No history of blood clots. 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 Associated symptoms: Deny chest pain, dyspnea, headache(s), nausea, rash or vomiting Review of Systems Const: Denies: fever(s), chills, body aches or change in appetite ENMT: Denies: throat pain or dental pain Card: Denies: chest pain Resp: Reports: productive cough; Denies: dyspnea GI: Denies: abdominal pain, nausea, vomiting or diarrhea Musc: Denies: neck pain or back pain Skin/Breast: Denies: rash Neuro: Denies: headache(s) PFSH ED PFSH: Medical History Closed fracture of distal end of right tibia Fracture of fibula, right, closed Generalized anxiety disorder Generalized anxiety disorder; excessive or unrealistic anxiety about two or more aspects of life work, social relationships, financial matters, and often causes palpitations, shortness of breath, and dizziness. Social History Smoking and tobacco/nicotine status: former use of tobacco/nicotine Quit status (tobacco/nicotine): has quit using Year quit tobacco: 01/2020 Former quit date comment: off and on smoking for a couple of years. Second hand smoke exposure: Yes Current gender identity: Male Physical Exam Const: COMMON NORMALS: no acute distress, patient oriented x3 and healthy appearing HENMT: COMMON NORMALS: normocephalic and atraumatic HEAD & SCALP: normocephalic and atraumatic Eye: COMMON NORMALS: Equal, round and reactive pupils present and EOMs intact bilaterally PUPIL: Yes Equal, round and reactive pupils present Neck/C-Spine: COMMON NORMALS: full ROM and supple Chest: COMMONS NORMALS: normal inspection of the chest and normal palpation of entire chest wall Resp: COMMON NORMALS: normal respiratory effort, No retractions, No use of accessory muscles and clear to auscultation bilaterally AUSCULTATION: clear to auscultation bilaterally Cardio: COMMON NORMALS: regular rhythm and No murmurs present (Cardio) RATE: tachycardic RHYTHM: regular rhythm GI: COMMON NORMALS: Normal to inspection, nondistended, normoactive bowel sounds present, Soft to palpation, non-tender and no masses PALPATION: Yes Soft to palpation Extremity: COMMON NORMALS: normal to inspection and full ROM Neuro: COMMON NORMALS: patient oriented x3, moves all extremities and no focal motor deficits Psych: COMMON NORMALS: mental status grossly normal, Normal thought process present and cooperative THOUGHT PROCESS: Normal thought process present Skin: COMMON NORMALS: no rashes or lesions noted and no wounds GENERAL SKIN EXAM: no rashes or lesions noted Course Vital Signs: Vital signs: Vital Signs Temperature 97.6 F 06/30/23 16:12 Pulse Rate 107 H 06/30/23 17:38 Respiratory Rate 17 06/30/23 17:19 Blood Pressure 144/95 06/30/23 17:38 Pulse Oximetry 95 06/30/23 17:38 Oxygen Delivery Me thod Room Air 06/30/23 17:38 MDM - General Adult Medical Decision Making Patient presents here with hemoptysis since resolved he had no shortness of breath a CTA shows no signs of PE or pneumonia he is stable for discharge. Medical Records I reviewed the patient's medical records. Lab Data I reviewed the patient's lab results. 06/30/23 16:32 06/30/23 16:32 Radiology Impressions Chest CTA 06/30/23 17:08 IMPRESSION: 1. No evidence for pulmonary embolism. 2. Linear atelectasis or scarring in the right lower lobe. 3. Incidental/nonacute findings are listed in the report. Laboratory Results WBC 7.17 10^3/uL (3.29-11.43) 06/30/23 16:32 RBC 5.02 10^6/uL (3.85-5.65) 06/30/23 16:32 Hgb 13.50 g/dL (11.27-16.99) 06/30/23 16:32 Hct 42.9 % (37-53) 06/30/23 16:32 MCV 85.5 fl (82-101) 06/30/23 16:32 MCH 26.9 pg (27-33) L 06/30/23 16:32 MCHC 31.5 g/dL (30-55) 06/30/23 16:32 RDW 14.0 % (12.1-15.1) 06/30/23 16:32 Plt Count 355 10^3/cmm (157-399) 06/30/23 16:32 MPV 9.9 fL (7.4-10.4) 06/30/23 16:32 Neut % (Auto) 61.1 % 06/30/23 16:32 Lymph % (Auto) 19.8 % 06/30/23 16:32 [place] % (Auto) 10.0 % 06/30/23 16:32 Eos % (Auto) 7.8 % 06/30/23 16:32 Baso % (Auto) 1.0 % 06/30/23 16:32 Neut # (Auto) 4.38 10^3/uL (1.8-7.7) 06/30/23 16:32 Lymph # (Auto) 1.4 10^3/uL (0.8-4.8) 06/30/23 16:32 [place]urel # (Auto) 0.7 10^3/uL (0.2-0.9) 06/30/23 16:32 Eos # (Auto) 0.6 10^3/uL (0.0-0.8) 06/30/23 16:32 Baso # (Auto) 0.1 10^3/uL (0.0-0.1) 06/30/23 16:32 Nucleated RBC % (auto) 0 % 06/30/23 16:32 Nucleated RBCs # 0.0 /100WBC 06/30/23 16:32 D-Dimer 1.01 ug/mLFEU (0-0.59) H 06/30/23 16:32 Sodium 143 mmol/L (136-145) 06/30/23 16:32 Potassium 3.1 mmol/L (3.5-5.1) L 06/30/23 16:32 Chloride 102 mmol/L (98-107) 06/30/23 16:32 Carbon Dioxide 28 mmol/L (22-29) 06/30/23 16:32 Anion Gap 16.1 (5-19) 06/30/23 16:32 BUN 9 mg/dL (6-20) 06/30/23 16:32 Creatinine 0.9 mg/dL (0.7-1.2) 06/30/23 16:32 GFR Calculation 92.1 mL/min (90-130) 06/30/23 16:32 Glucose 165 mg/dL (65-115) H 06/30/23 16:32 Calculated Osmolality 298 mOsm/kg (285-295) H 06/30/23 16:32 Calcium 9.7 mg/dL (8.5-10.5) 06/30/23 16:32 Total Bilirubin 0.4 mg/dL (0.15-1.2) 06/30/23 16:32 AST 21 U/L (0-40) 06/30/23 16:32 ALT 28 U/L (0-41) 06/30/23 16:32 Alkaline Phosphatase 104 U/L (40-130) 06/30/23 16:32 NT-Pro-B Natriuret Pep 38 pg/mL (0-125) 06/30/23 16:32 Total Protein 7.7 g/dL (6.6-8.7) 06/30/23 16:32 Albumin 4.4 g/dL (3.5-5.2) 06/30/23 16:32 Globulin 3.3 g/dL (1.3-4.6) 06/30/23 16:32 All radiology interpretation(s) finalized by discharge EKG Data EKG 1: I personally reviewed and interpreted this EKG as follows: EKG interpretation date: 06/30/23 EKG interpretation time: 17:14 Interpretation: sinus tach hr [address] or t wave abnormalities qrs 90 qtc 331 Computer generated interpretation: Chest CTA 06/30/23 17:08 IMPRESSION: 1. No evidence for pulmonary embolism. 2. Linear atelectasis or scarring in the right lower lobe. 3. Incidental/nonacute findings are listed in the report. 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
[2023-06-30 16:48] LABS: Basophils # 0.1 10^3/uL (0.0-0.1); Eosinophils # 0.6 10^3/uL (0.0-0.8); Eosinophils % 7.8 %; Hematocrit 42.9 % (37-53); Lymphocytes # 1.4 10^3/uL (0.8-4.8); Lymphocytes % 19.8 %; Mean Corpuscular HGB Conc 31.5 g/dL (30-55); Mean Corpuscular Hemoglobin 26.9 pg (27-33); Mean Corpuscular Volume 85.5 fl (82-101); Mean Platelet Volume 9.9 fL (7.4-10.4); Monocytes # 0.7 10^3/uL (0.2-0.9); Neutrophils # 4.38 10^3/uL (1.8-7.7); Neutrophils % 61.1 %; Nucleated Red Blood Cells % 0 %; Platelet Count 355 10^3/cmm (157-399); Red Blood Count 5.02 10^6/uL (3.85-5.65); White Blood Count 7.17 10^3/uL (3.29-11.43)
[2023-06-30 17:06] LABS: D Dimer 1.01 ug/mLFEU (0-0.59)
--- NOTE | 2023-06-30 17:08 | CTR_ITS ---
PROCEDURE INFORMATION: Exam: CTA Chest With Contrast Exam date and time: 06/30/2023 6:28 PM Age: 43 years old Clinical indication: Other: Hemoptysis TECHNIQUE: Imaging protocol: Computed tomographic angiography of the chest with contrast. Exam focused on the arteries. 3D rendering (Not supervised by radiologist): MIP and/or 3D reconstructed images were created by the technologist. Radiation optimization: All CT scans at this facility use at least one of these dose optimization techniques: automated exposure control; mA and/or kV adjustment per patient size (includes targeted exams where dose is matched to clinical indication); or iterative reconstruction. Contrast material: OMNI 350; Contrast volume: 100 ml; Contrast route: INTRAVENOUS (IV); REPORTING DATA: Count of CT and Cardiac NM exams in prior 12 months: This patient has received 4 known CTs and 0 known cardiac nuclear medicine studies in the 12 months prior to the current study. COMPARISON: CT chest abdpel w/*[id number] 05/14/2023 12:08 AM RADIATION DOSE METRICS: Total DLP (mGy-cm): 433 FINDINGS: Pulmonary arteries: No filling defects in the pulmonary arteries to suggest pulmonary embolism. Aorta: No evidence for aortic aneurysm or aortic dissection. Trachea: Tracheobronchial structures are patent. Lungs: Linear atelectasis or scarring in the right lower lobe. No focal consolidation. No pulmonary edema. No pulmonary parenchymal nodules or masses. Pleural spaces: No pneumothorax. No pleural effusion. Heart: No cardiomegaly. No pericardial effusion. Esophagus: The esophagus is unremarkable. Mediastinal space: No mediastinal hematoma. No pneumomediastinum. Lymph nodes: No lymphadenopathy. Liver: The visualized liver is unremarkable. Gallbladder and bile ducts: The gallbladder is unremarkable. No biliary ductal dilatation. Pancreas: The visualized pancreas is unremarkable. No pancreatic ductal dilatation. Spleen: The visualized spleen is unremarkable. Adrenal glands: The right and left adrenal glands are unremarkable. Kidneys and ureters: The visualized right and left kidneys are unremarkable. Bones/joints: Mild degenerative changes in the visualized spine. Soft tissues: The extrathoracic soft tissues are unremarkable. CT/CT angio chest PE protcl [id number] IMPRESSION: 1. No evidence for pulmonary embolism. 2. Linear atelectasis or scarring in the right lower lobe. 3. Incidental/nonacute findings are listed in the report.
--- NOTE | 2023-06-30 17:14 | ECG_ITS ---
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 [id number]
[2023-06-30 17:19] VITALS: BP 144/95; PULSE 111; RESP 17; O2SAT 98
[2023-06-30 17:21] LABS: Alanine Aminotransferase 28 U/L (0-41); Albumin Level 4.4 g/dL (3.5-5.2); Alkaline Phosphatase 104 U/L (40-130); Anion Gap 16.1 (5-19); Aspartate Amino Transferase 21 U/L (0-40); Blood Urea Nitrogen 9 mg/dL (6-20); Calcium 9.7 mg/dL (8.5-10.5); Carbon Dioxide 28 mmol/L (22-29); Chloride 102 mmol/L (98-107); Globulin 3.3 g/dL (1.3-4.6); Glomerular Filtration Rate 92.1 mL/min (90-130); Glucose 165 mg/dL (65-115); NT Pro B Type Natriuretic Pept 38 pg/mL (0-125); Osmolality Calculated 298 mOsm/kg (285-295); Potassium 3.1 mmol/L (3.5-5.1); Sodium 143 mmol/L (136-145); Total Bilirubin 0.4 mg/dL (0.15-1.2); Total Protein 7.7 g/dL (6.6-8.7)
[2023-06-30 17:38] VITALS: BP 144/95; PULSE 107; O2SAT 95
[2023-06-30] MEDS: iohexol 350 mg/mL 500 mL Btl (per mL) IV (17:50)
[2023-06-30] MEDS: sodium chloride 0.9% 1,000 ML 999 ML IV (18:30)
[2023-06-30 19:34] VITALS: BP 144/90; PULSE 60; RESP 20; O2SAT 97
== END 2023-06-30 19:35 | disposition home or self-care (01) ==
PROVIDERS: Emergency Provider Emergency Medicine; PCP Podiatrist Foot & Ankle Surgery
DX: R04.2 Hemoptysis (principal); Z79.82 Long term (current) use of aspirin; Z87.891 Personal history of nicotine dependence
CPT/HCPCS: 36415; 71045; 71275; 80053; 83880; 85025; 85378; 93005; 96360; 99285; J7030; Q9967

== ENCOUNTER → 2023-07-08 10:17 | Outpatient (BNVA) | payer SELFPAY | PROVIDERS: PCP Podiatrist Foot & Ankle Surgery; Visit Provider Podiatrist Foot & Ankle Surgery | DX: Z98.890 Other specified postprocedural states; S82.401D Unspecified fracture of shaft of right fibula, subsequent encounter for closed fracture with routine healing; X58.XXXD Exposure to other specified factors, subsequent encounter | CPT/HCPCS: 73610 ==

== ENCOUNTER → 2023-07-21 11:31 | Outpatient (BNVA) | payer SELFPAY | PROVIDERS: PCP Podiatrist Foot & Ankle Surgery; Visit Provider Podiatrist Foot & Ankle Surgery | DX: M25.571 Pain in right ankle and joints of right foot (principal); Z98.890 Other specified postprocedural states; S82.401A Unspecified fracture of shaft of right fibula, initial encounter for closed fracture; X58.XXXA Exposure to other specified factors, initial encounter | CPT/HCPCS: 73610 ==

== ENCOUNTER → 2023-08-04 09:15 | Outpatient (BNVA) | payer SELFPAY | PROVIDERS: PCP Podiatrist Foot & Ankle Surgery; Visit Provider Podiatrist Foot & Ankle Surgery | DX: M25.571 Pain in right ankle and joints of right foot (principal); Z98.890 Other specified postprocedural states; S82.401D Unspecified fracture of shaft of right fibula, subsequent encounter for closed fracture with routine healing; X58.XXXD Exposure to other specified factors, subsequent encounter | CPT/HCPCS: 73610 ==

== ENCOUNTER → 2023-08-18 09:58 | Outpatient (BNVA) | payer SELFPAY | PROVIDERS: PCP Podiatrist Foot & Ankle Surgery; Visit Provider Podiatrist Foot & Ankle Surgery | DX: Z98.890 Other specified postprocedural states; S82.401K Unspecified fracture of shaft of right fibula, subsequent encounter for closed fracture with nonunion; X58.XXXD Exposure to other specified factors, subsequent encounter | CPT/HCPCS: 73610 ==

== ENCOUNTER 2023-08-18 14:46 | Outpatient (CLI) | payer SELFPAY | END 2023-08-18 14:47 | disposition home or self-care (01) | LOC: SPT 14:46 | PROVIDERS: PCP Podiatrist Foot & Ankle Surgery; Visit Provider Podiatrist Foot & Ankle Surgery | DX: Z47.89 Encounter for other orthopedic aftercare (principal); M25.571 Pain in right ankle and joints of right foot | CPT/HCPCS: 97760; L4361 ==

== ENCOUNTER → 2023-09-08 11:23 | Outpatient (BNVA) | payer SELFPAY | PROVIDERS: PCP Podiatrist Foot & Ankle Surgery; Visit Provider Podiatrist Foot & Ankle Surgery | DX: M25.571 Pain in right ankle and joints of right foot (principal); Z98.890 Other specified postprocedural states | CPT/HCPCS: 73610 ==

== ENCOUNTER → 2023-09-22 08:02 | Outpatient (BNVA) | payer SELFPAY | PROVIDERS: PCP Podiatrist Foot & Ankle Surgery; Visit Provider Podiatrist Foot & Ankle Surgery | DX: Z98.890 Other specified postprocedural states (principal); M25.571 Pain in right ankle and joints of right foot | CPT/HCPCS: 73610 ==

== ENCOUNTER → 2023-10-13 09:28 | Outpatient (BNVA) | payer SELFPAY | PROVIDERS: PCP Podiatrist Foot & Ankle Surgery; Visit Provider Podiatrist Foot & Ankle Surgery | DX: M25.571 Pain in right ankle and joints of right foot (principal); Z98.890 Other specified postprocedural states | CPT/HCPCS: 73610 ==

== ENCOUNTER → 2023-10-27 09:57 | Outpatient (BNVA) | payer SELFPAY | PROVIDERS: PCP Podiatrist Foot & Ankle Surgery; Visit Provider Podiatrist Foot & Ankle Surgery | DX: M25.571 Pain in right ankle and joints of right foot (principal); Z98.890 Other specified postprocedural states | CPT/HCPCS: 73610 ==

== ENCOUNTER → 2024-02-16 07:53 | Outpatient (BNVA) | payer SELFPAY | PROVIDERS: PCP Podiatrist Foot & Ankle Surgery; Visit Provider Podiatrist Foot & Ankle Surgery | DX: M25.571 Pain in right ankle and joints of right foot (principal); Z98.890 Other specified postprocedural states | CPT/HCPCS: 73610 ==

== ENCOUNTER → 2024-04-11 14:29 | Outpatient (BNVA) | payer SELFPAY | PROVIDERS: PCP Podiatrist Foot & Ankle Surgery; Visit Provider Podiatrist Foot & Ankle Surgery | DX: M25.571 Pain in right ankle and joints of right foot (principal); M19.171 Post-traumatic osteoarthritis, right ankle and foot; Z98.890 Other specified postprocedural states | CPT/HCPCS: 73610 ==

== ENCOUNTER → 2024-07-09 09:31 | Outpatient (BNVA) | payer SELFPAY | PROVIDERS: PCP Family Medicine; Visit Provider Family Medicine | DX: Z13.6 Encounter for screening for cardiovascular disorders (principal); E66.9 Obesity, unspecified | CPT/HCPCS: 80053; 80061; 83036; 84443; 85025 ==